=== PATIENT | female | born 1980 | race Caucasian/White ===

== ENCOUNTER → 2023-01-31 | Outpatient (CLI) | payer OTHER, SELFPAY | END | disposition home or self-care (01) | PROVIDERS: PCP Family Medicine; Referring Provider Surgery; Visit Provider Surgery | DX: I87.2 Venous insufficiency (chronic) (peripheral) (principal) ==

== ENCOUNTER 2023-02-01 07:06 | Day surgery (SDC) | payer OTHER, SELFPAY ==
--- NOTE | 2023-01-29 16:35 | HP.PCM_ITS ---
[facility] - General General Date of Admission: 02/01/23 Date of Service: 02/01/23 Chief Complaint: Chronic venous insufficiency, varicose veins with inflammation, leg pain, swelling - Right lower extremity [facility] Narrative MARQUIS LOPEZ, is a 42 F who presents with pain in her right lower extremity related to chronic venous disease. The patient has experienced pain and discomfort in her right lower extremity, which is typically worse at the end of each day. This is associated with swelling. The patient is active. She sleeps on a flat mattress at night. She denies a history of thrombophlebitis. She has undergone no prior vein procedures in the past. The patient's mother suffers from severe venous disease. The patient has undergone a venous duplex examination, which revealed segmental valvular incompetence involving the right great saphenous vein. The implications of this finding have been discussed with the patient in detail. The options of management have been fully explained. Conservative treatment measures have been implemented, which have included leg elevation, avoidance of idle standing and sitting, graduated compression stockings, weight control measures, active lifestyle, [id number] analgesics, etc. Despite these measures, the patient continues to have pain and discomfort in her right lower extremity which interfere with daily activities, quality of life, and job functions. [facility] Medical History Asthma Cardiology follow-up encounter Chronic venous insufficiency Fatty liver Former smoker GERD (gastroesophageal reflux disease) History of echocardiogram History of irregular heartbeat History of pain when walking History of stress test Hyperlipidemia Obesity Right leg pain Right leg swelling Syncope Varicose veins of lower extremity with inflammation Wears contact lenses Wears glasses Home Medications doxycycline hyclate 50 mg capsule 50 mg PO DAILY 01/25/23 [History Last Taken Unknown] fexofenadine 180 mg tablet 180 mg PO DAILY 01/25/23 [History Last Taken Unknown] Allergy/AdvReac Type Severity Reaction Status Date / Time bee venom protein (honey bee) Allergy Anaphylaxis Verified 01/25/23 12:52 [bee sting] adhesive tape AdvReac Rash Verified 01/25/23 12:52 no significant family history (The patient's father is 63 years of age and suffers from obesity. The patient's mother is 64 years of age with a history of diabetes mellitus, hyperlipidemia, obesity, and chronic venous disease.) Surgical History History of cholecystectomy History of D&C History of hip surgery History of hysterectomy History of laparoscopy History of surgery History of tubal ligation Social History Smoking Status: Former smoker Physical Exam Const alert, oriented x3, no apparent distress and well nourished General Appearance: cooperative and well developed Orientation / Consciousness: awake, oriented to person, oriented to place and oriented to time HEENT normocephalic and head/scalp atraumatic Head and Scalp: normal to inspection, normocephalic and atraumatic External Ear: external ears normal Eyes PERRL and EOMs intact bilaterally General Eye: normal appearance of both eyes Resp normal respiratory effort, normal air movement, no retractions, no use of accessory muscles and clear to auscultation bilaterally Effort and Inspection: able to speak in complete sentences Cardio regular rate and regular rhythm GI soft to palpation Extremity normal capillary refill and no calf tenderness Extremity Narrative: Peripheral extremities are warm and well-perfused. General Extremity: Negative for clubbing or cyanosis Skin Skin Narrative: Small varicosities are noted on the right medial calf, as well as a prominent reticular vein. General Skin Exam: no breakdown Neuro oriented x3, CN's II-XII intact bilaterally, no focal motor deficits and no sensory deficits noted Speech: speech normal Psych thought process normal, cooperative and affect normal Appearance: grossly normal and appropriate Attitude: calm Activity / Motor Behavior: appropriate eye contact Speech: normal speech Mood & Affect: euthymic mood Thought Process: normal thought process Thought Content: normal thought content Attention / Concentration: attention grossly intact Assessment & Plan Assessment/Plan (1) Chronic venous insufficiency: (2) Varicose veins of lower extremity with inflammation: (3) Right leg pain: (4) Right leg swelling: (5) Asthma: (6) Obesity: (7) Hyperlipidemia: (8) GERD (gastroesophageal reflux disease): PLAN: Plan This is a 42-year-old female with a longstanding history of venous symptoms in her right lower extremity. For many years, the patient has experienced pain, discomfort, and swelling in her right lower extremity. Conservative treatment measures have been implemented, which have included leg elevation, avoidance of idle standing and sitting, graduated compression stockings, weight control measures, active lifestyle, [id number] analgesics, etc. Despite these measures, the patient has remained symptomatic, with symptoms which have adversely affected daily activities, quality of life, and job functions. A recent venous duplex examination has revealed incompetence of the right great saphenous vein. The implications of this finding have been discussed with the patient in detail. The options of management have been fully explained. The indications and risks of endovenous laser ablation of the right great saphenous vein have been discussed with the patient in detail. The nature of the procedure has been explained. Expectations of the procedure have been discussed. The patient's questions have been answered. The patient is to be admitted for the purpose of elective endovenous laser ablation of the right great saphenous vein. The indications and risks of the procedure have been thoroughly explained. The patient has indicated her desire to proceed. The appropriate preprocedure consent process has been undertaken.
[2023-02-01] MEDS: Lactated Ringers 1,000 ML 15 ML IV (07:43)
[2023-02-01] MEDS: Enoxaparin 30 MG/0.3 ML Syringe SC (07:44)
[2023-02-01 07:46] VITALS: BP 125/77; PULSE 88; RESP 18; TEMP 37.1; O2SAT 99; BMI 35.1
[2023-02-01] MEDS: Cefazolin 2 GM in 0.9% Normal Saline 100 ML IV (08:11)
--- NOTE | 2023-02-01 09:27 | DCINST_ITS ---
Discharge Instructions Diet Discharge Diet: No restrictions Activity Discharge Activity: May Not Drive (2-3 days) May shower in (days): 2 Weight Bearing Status: Weight bearing as tolerated Lifting Restrictions: Do not lift more than 10-15 pounds Keep extremity elevated above heart level: Right Leg Additional Activity Instructions:: May shower in 48-72 hours. Rewrap leg with Rigo from base of toes to upper thigh daily. Dressing / Incision Call your doctor if you observe: Shortness of breath, Chest pain and Uncontrolled pain Suture Line Care: Avoid Pulling/Pushing Change Dressing in: 2 days Remove Dressing in: 2 days (Then rewrap with Rigo daily. May also use compression stockings.) Cleanse incision/area with: Keep Dressing Clean & Dry Follow Up Care Please Follow Up With: Herbert Stubbs MD When: About 2 weeks Test Results: Test results from this visit will be discussed in further detail at your follow- up appointment, if applicable. Discharge Plan Admission Attending Provider: Herbert Stubbs Primary Care Provider: Paulino Almazan Discharge Orders/Prescriptions Prescriptions: No Action doxycycline hyclate 50 mg Capsule 50 mg PO DAILY fexofenadine [Mariam] 180 mg Tablet 180 mg PO DAILY Other Ambulatory Orders: ,Urine (Routine) Timeframe: [id number] Facility: [facility] - Location: Laboratory Ordered By: Dr. Herbert Stubbs Referrals / Follow Up: Paulino Almazan MD [Primary Care Provider] - Disposition Disposition (needs filled in before D/C Order can be placed): Home, Self Care
[2023-02-01 09:28] VITALS: BP 122/83; BP 125/77; PULSE 99; RESP 16; TEMP 36.1; O2SAT 97
[2023-02-01 09:45] VITALS: BP 112/75; BP 125/77; PULSE 93; RESP 16; O2SAT 95
[2023-02-01 10:00] VITALS: BP 118/76; BP 125/77; PULSE 84; RESP 16; O2SAT 95
[2023-02-01 10:07] VITALS: BP 120/67; BP 125/77; PULSE 84; RESP 16; TEMP 36.7; O2SAT 98
[2023-02-01] MEDS: oxyCODONE 5 MG Tablet PO (10:22)
[2023-02-01 10:31] VITALS: BP 125/77
--- NOTE | 2023-02-01 18:57 | PCM.OPRPT ---
Problems Associated Problem List Diagnoses (1) Chronic venous insufficiency: (2) Varicose veins of lower extremity with inflammation: (3) Right leg pain: (4) Right leg swelling: Report of Operation Date of Procedure: 02/01/23 Pre-Operative Diagnosis: Chronic venous insufficiency, varicose veins with inflammation, leg pain, leg swelling - Right lower extremity Post-Operative Diagnosis: Chronic venous insufficiency, varicose veins with inflammation, leg pain, leg swelling - Right lower extremity Surgery/Procedure Performed:: Endovenous laser ablation of the right great saphenous vein Description of Surgical Findings:: As above Surgeon: Herbert Stubbs Type of Anesthesia: General and Tumescent Anesthesiologist: Camacho Matias Specimen's removed: None Drains: None Estimated Blood Loss (mL): Minimal Description of Procedure: This a 42-year-old female with a longstanding history of chronic venous disease in her right lower extremity. She suffers from chronic venous insufficiency, varicose veins with inflammation, leg pain, and swelling. For many years, the patient has experienced pain and discomfort in her right lower extremity. A venous duplex examination revealed segmental valvular incompetence involving the right great saphenous vein. The implications of this diagnosis were discussed with the patient in detail. The options of management were fully described. Conservative treatment measures were implemented, which included leg elevation, avoidance of idle standing and sitting, graduated compression stockings, weight control measures, active lifestyle, [id number] analgesics, etc. Despite these measures, the patient remained symptomatic, with symptoms which adversely affected daily activities, quality of life, and job functions. The indications and risks of endovenous laser ablation of the right great saphenous vein were discussed with the patient in detail. The patient indicated her desire to proceed. The appropriate preprocedure consent process was undertaken. The patient underwent ultrasound marking of the right great saphenous vein preoperatively. She was then brought to the operating room suite, placed supine upon the operating room table, where general anesthesia was administered by the anesthesia staff. The patient's right lower extremity and right groin were prepped and draped in the appropriate sterile manner. The patient was placed in reverse Trendelenburg position. Ultrasonography was used to image the right great saphenous vein in the distal calf. The micropuncture technique was used to access the right great saphenous vein percutaneously in the distal calf. In this manner, a 0.018 inch guidewire was advanced intraluminally into the right great saphenous vein, and was visualized by ultrasonography. A micropuncture sheath was advanced over the guidewire. The 0.018 inch guidewire was exchanged for a 0.035 inch guidewire, which was then advanced intraluminally to a level just distal to the right sapheno-femoral junction, as confirmed by ultrasound imaging. A long 4 [place] sheath was then advanced over the guidewire, and its tip was positioned approximately 3 cm distal to the right sapheno-femoral junction. Perivenous tumescent anesthesia was injected from the 4 [place] sheath exit site up to the right sapheno-femoral junction. This was performed segmentally using ultrasound imaging. The AngioDynamics laser fiber was then introduced into the 4 [place] sheath and coupled appropriately. Ultrasonography was used to confirm that the tip of the laser fiber was positioned within the right great saphenous vein approximately 2-1/2 to 3 cm distal to the right sapheno-femoral junction. The patient was placed in Trendelenburg position and the laser fiber was activated. The AngioDynamics laser was slowly withdrawn at a constant rate throughout the length of the right great saphenous vein, thereby ablating the right great saphenous vein segmentally. Energy applied was approximately 60 to 80 J/cm. Following the laser ablation, the laser fiber and sheath were removed, and manual pressure was briefly applied to the percutaneous access site to achieve hemostasis. After assuring satisfactory hemostasis, the access site was approximated using Cavilon and Steri-Strips. A dry sterile gauze dressing was applied over the access site, and the leg was wrapped from the base of the toes to the upper thigh with Kerlix, followed by Rigo wrap. The blood loss for the procedure was minimal. The sponge, needle, and instrument counts at the end of the procedure were correct. Patient tolerated the procedure well and was transported from the operating room to the postanesthesia care unit in stable condition. The amount of tumescent anesthesia utilized, number of joules applied, and treatment times were recorded separately. Grafts/Implants Used: None Complications None Admit VTE Documentation VTE Present on Admission: No VTE Mechan Device Prophylaxis: SCD's (Left) VTE Pharm Prophylaxis ordered?: Yes
== END 2023-02-01 10:39 | disposition home or self-care (01) ==
LOC: SDC 07:08 → AC 07:09
PROVIDERS: PCP Family Medicine; Referring Provider Surgery; Visit Provider Surgery
PROC: (CPT 36478; principal; 2023-02-01 08:15)
DX: I83.11 Varicose veins of right lower extremity with inflammation (principal); I83.811 Varicose veins of right lower extremity with pain; I83.891 Varicose veins of right lower extremity with other complications; E78.5 Hyperlipidemia, unspecified; J45.909 Unspecified asthma, uncomplicated; K21.9 Gastro-esophageal reflux disease without esophagitis; E66.9 Obesity, unspecified; Z87.891 Personal history of nicotine dependence
CPT/HCPCS: 36478; 01520; J7040; J7120; J2405

== ENCOUNTER → 2025-04-16 | Outpatient (CLI) | payer OTHER, SELFPAY ==
[2025-04-16 11:41] LABS: EXAGEN MAILED SPECIMEN
[2025-04-16 12:25] LABS: Color, Urine Yellow (Yellow); Glucose, Dipstick Normal (Normal); Ketone-Dipstick Negative (Negative); Leukocyte Esterase-Dipstick Negative /ul (Negative); Nitrite-Dipstick Negative (Negative); Occult Blood-Urine Negative /ul (Negative); Protein-Dipstick Negative (Negative); Specific Gravity, Urine 1.015 (1.002-1.030); Urine Bilirubin Dipstick Negative (Negative)
[2025-04-16 12:48] LABS: Hematocrit 41.4 % (37-47); Hemoglobin 13.5 g/dL (12.0-15.0); Immature Granulocytes Count 0.020 X10^3/uL (0.0-0.0); Mean Corp Hgb Conc 32.6 g/dL (32-36); Mean Corpuscular Volume 88.1 fL (81-99); Mean Platelet Vol. 10.5 fl (6.2-12.0); NRBC Flagged by Analyzer 0 % (0-5); Platelet Count 338 K/mm3 (150-450); RBC Distribution Width CV 12.1 % (11.6-14.6); RBC Distribution Width SD 38.9 fl (35.1-43.9); Red Blood Count 4.70 M/mm3 (4.2-5.4); White Blood Count 7.6 K/mm3 (4.4-11.0)
[2025-04-16 13:35] LABS: AST(SGOT) 26 U/L (<=31); Alanine Aminotransfer ALT/SGPT 30 U/L (<=34); Albumin, Serum 4.4 g/dL (3.5-5.0); Alkaline Phosphatase 127 U/L (35-104); Anion Gap 13 (5-15); BUN 10 mg/dL (4-19); BUN/Creat Ratio 12.4 RATIO (10-20); CRP 7.66 mg/L (0.0-3.0); Calcium,Total 9.7 mg/dL (7.6-11.0); Carbon Dioxide 22.7 mmol/L (21.0-32.0); Chloride 105 mmol/L (98-108); Globulin 3.1 g/dL (2.2-4.2); Glucose 88 mg/dL (70-99); Hepatitis B Surface Antigen Nonreactive (Nonreactive); Hepatitis C Antibody Nonreactive (Nonreactive); Potassium 3.9 mmol/L (3.3-5.1)
[2025-04-16 14:27] LABS: Creatinine, Urine (random) 90.50 mg/dL (28.00-217.00)
[2025-04-16 14:29] LABS: Protein, Urine (Random) 7.0 mg/dL (0.0-12.0); Protein:Creat Ratio 77 mg/g CRE (0-200)
[2025-04-18 11:09] LABS: Dilute Russell Viper Venom 39.0 sec (0.0-47.0); Interpretation Comment: (.); PTT-LA 29.9 sec (0.0-43.5)
== END | disposition home or self-care (01) ==
LOC: MTLAB 10:37
PROVIDERS: PCP Internal Medicine; Referring Provider Internal Medicine Rheumatology; Visit Provider Internal Medicine Rheumatology
DX: M06.4 Inflammatory polyarthropathy (principal); R76.8 Other specified abnormal immunological findings in serum; M79.7 Fibromyalgia
CPT/HCPCS: 36415; 80053; 81002; 82570; 84156; 85025; 85652; 86140; 86706; 86803; 87340

== ENCOUNTER → 2025-04-29 | Outpatient (CLI) | payer OTHER, SELFPAY ==
[2025-04-29 13:54] LABS: EXAGEN MAILED SPECIMEN
== END | disposition home or self-care (01) ==
LOC: LAB 12:53
PROVIDERS: PCP Internal Medicine; Referring Provider Internal Medicine Rheumatology; Visit Provider Internal Medicine Rheumatology
DX: Z00.00 Encounter for general adult medical examination without abnormal findings (principal)